=== PATIENT | female | born 2000 | race African-American/Black ===

== ENCOUNTER 2020-07-28 22:03 | Emergency (ER) | payer SELFPAY ==
--- NOTE | 2020-07-28 22:21 | ER Document Report ---
ED Medical Screen (RME) - General Chief Complaint: Abdominal Pain Stated Complaint: ABDOMINAL PAIN Time Seen by Provider: 07/28/20 22:15 Mode of Arrival: Ambulatory Information source: Patient Notes: HPI; 21-year-old female 3 para 1 presents to the emergency room complaining of left-sided abdominal pain that started earlier tonight. Describes it as a sharp pain patient states she has not had any OB care during this and her last menstrual cycle she says was sometime in March. Patient states she did go 2 weeks ago to an ultrasound center and was given the gender of the baby but they could not tell her how far along she was. PE: Alert and oriented x3. No acute distress noted. Lungs: Clear to auscultation without rales, rhonchi, wheezes. Heart: Regular rate rhythm without murmurs, rubs, gallops. Patient refused any medication in triage for her pain. I have greeted and performed a rapid initial assessment of this patient. A comprehensive ED assessment and evaluation of the patient, analysis of test results and completion of the medical decision making process will be conducted by additional ED providers. I have specifically instructed the patient or fami ly members with the patient to immediately return to any nursing staff should anything change in the patient's condition or with their chief complaint. TRAVEL OUTSIDE OF THE [place] IN LAST 30 DAYS: No - Related Data Allergies/Adverse Reactions: No Known Allergies Allergy (Unverified 07/28/20 22:14) Past Medical History - Social History Chew tobacco use (# tins/day): No Frequency of alcohol use: None Drug Abuse: None Physical Exam - Vital signs Vitals: Temp Pulse Resp BP Pulse Ox 97.9 F 91 14 138/79 H 98 07/28/20 22:10 07/28/20 22:10 07/28/20 22:10 07/28/20 22:10 07/28/20 22:10 Course - Vital Signs Vital signs: Temp Pulse Resp BP Pulse Ox 97.9 F 91 14 138/79 H 98 07/28/20 22:16 07/28/20 22:10 07/28/20 22:10 07/28/20 22:10 07/28/20 22:10
--- NOTE | 2020-07-29 01:14 | RADIOLOGY REPORT (SQ) ---
EXAM DESCRIPTION: ULTRASOUND OBSTETRICS LIMITED CLINICAL HISTORY: Abdominal pain COMPARISON: None available. TECHNIQUE: Multiple ultrasound images of the pelvis were acquired. FINDINGS: The fetus is in vertex position. A heart rate of 140 beats/minute is noted. Expected date of confinement by ultrasound is 12/31/2020. Age by ultrasound is 17 weeks 6 days. The LVP is 3.2 centimeters. The placenta is fundal in position. Examination is not performed for the purposes of anatomy assessment. The maternal cervical length is 3.0 centimeters. IMPRESSION: Single live intrauterine with details as provided above.
--- NOTE | 2020-07-29 02:01 | ER Document Report ---
ED GI/ - General Chief Complaint: Abdominal Pain Stated Complaint: ABDOMINAL PAIN Time Seen by Provider: 07/28/20 22:15 Mode of Arrival: Ambulatory Notes: CHIEF COMPLAINT: Left-sided abdominal pain today HPI: 20-year-old female presenting for left-sided abdominal pain in the setting of no vaginal bleeding or discharge. Patient has not seen [facility] for evaluation of this . Denies dysuria fever nausea vomiting ROS: See HPI - all other systems were reviewed and are otherwise negative Constitutional: no fever Eyes: no drainage, no blurred vision ENT: no runny nose, no sore throat Cardiovascular: no chest pain Resp: no SOB, no cough GI: no vomiting, no diarrhea, + abdominal pain : no dysuria Integumentary: no rash Allergy: no hives Musculoskeletal: no extremity pain or swelling Neurological: no numbness/tingling, no weakness MEDICATIONS: I agree with the patient medications as charted by the RN. ALLERGIES: I agree with the allergies as charted by the RN. PAST MEDICAL HISTORY/PAST SURGICAL HISTORY: Reviewed and agree as charted by RN. SOCIAL HISTORY: Reviewed and agree as charted by RN. FAMILY HISTORY: No significant familial comorbid conditions directly related to patient complaint EXAM: Reviewed vital signs as charted by RN. CONSTITUTIONAL: Alert and oriented and responds appropriately to questions. Well-appearing; well-nourished HEAD: Normocephalic; atraumatic EYES: PERRL; Conjunctivae clear, sclerae non-icteric ENT: normal nose; no rhinorrhea; moist mucous membranes; pharynx without lesions noted, no uvula edema or deviation, no tonsillar hypertrophy, phonation normal NECK: Supple without meningismus; non-tender; no cervical lymphadenopathy, no masses CARD: RRR; no murmurs, no clicks, no rubs, no gallops; symmetric distal pulses RESP: Normal chest excursion without splinting or tachypnea; breath sounds clear and equal bilaterally; no wheezes, no rhonchi, no rales, pulse oximetry 98% on room air not hypoxic ABD/GI: Normal bowel sounds; non-distended; soft, minimal tenderness left side of the abdomen on palpation, no rebound, no guarding; gravid uterus palpable and nontender BACK: The back appears normal and is non-tender to palpation, there is no CVA tenderness EXT: Normal ROM in all joints; non-tender to palpation; no cyanosis, no effusions, no edema SKIN: Normal color for age and race; warm; dry; good turgor; no acute lesions noted NEURO: Moves all extremities equally; Motor and sensory function intact PSYCH: The patient's mood and manner are appropriate. Grooming and personal hygiene are appropriate. MDM: 20-year-old female presenting for evaluation of left-sided abdominal pain in the setting of . Patient has no vaginal complaints. Patient declines pelvic exam at this time aware that we cannot evaluate cervix evaluate for vaginal bleeding or further evaluate her without pelvic exam. Aware that we cannot rule out vaginitis or other STDs. Patient continues to decline pelvic exam. Patient's ultrasound was done prior to my evaluation dates of at approximately 17 weeks. Awaiting urinalysis and lab work. If no other acute abnormalities are noted anticipate discharge to follow-up with [facility] with return instructions TRAVEL OUTSIDE OF THE [place] IN LAST 30 DAYS: No - Related Data Allergies/Adverse Reactions: No Known Allergies Allergy (Unverified 07/28/20 22:14) Past Medical History - General Information source: Patient Last Menstrual Period: 03/25 - Social History Smoking Status: Never Smoker Chew tobacco use (# tins/day): No Frequency of alcohol use: None Drug Abuse: None Family History: Reviewed & Not Pertinent Patient has homicidal ideation: No Physical Exam - Vital signs Vitals: Temp Pulse Resp BP Pulse Ox 97.9 F 91 14 138/79 H 98 07/28/20 22:10 07/28/20 22:10 07/28/20 22:10 07/28/20 22:10 07/28/20 22:10 Course - Re-evaluation Re-evalutation: 07/29/20 02:25 Lab work does not show any acute abnormalities including UTI. I have low suspicion for kidney stone at this time she is not uncomfortable at all. Perhaps round ligament pain. She continues to decline pelvic exam, will discharge to follow-up with [facility] - Vital Signs Vital signs: Temp Pulse Resp BP Pulse Ox 97.9 F 91 14 138/79 H 98 07/28/20 22:16 07/28/20 22:10 07/28/20 22:10 07/28/20 22:10 07/28/20 22:10 - Laboratory Result Diagrams: 07/29/20 01:36 07/29/20 01:36 Laboratory results interpreted by me: 07/29/20 07/29/20 07/29/20 01:36 01:36 01:36 WBC 12.4 H Hgb 11.9 L Hct 34.8 L RDW 14.7 H Absolute Neuts (auto) 8.8 H Sodium 134.8 L Creatinine 0.41 L Serum HCG, Qual POSITIVE H Urine Ketones Ur Leukocyte Esterase 07/29/20 01:44 WBC Hgb Hct RDW Absolute Neuts (auto) Sodium Creatinine Serum HCG, Qual Urine Ketones TRACE H Ur Leukocyte Esterase TRACE H Discharge - Discharge Clinical Impression: Abdominal pain, left lower quadrant Qualifiers: Weeks of gestation: 18 weeks Qualified Code(s): Z3A.18 - 18 weeks gestation of Condition: Fair Disposition: HOME, SELF-CARE Additional Instructions: Take Tylenol for pain. Follow-up with [facility] for further evaluation and treatment of your . Your lab work did not show any acute abnormali ties. Urine did not show evidence of an infection. You have declined pelvic exam tonight. If you have onset of vaginal bleeding or have worsening pain or concerns please return for further evaluation. Your dated at 17 weeks and 6 days tonight Referrals: ALYSSA DELEON MD [ACTIVE STAFF] - Follow up as needed
[2020-07-29 02:07] LABS: ABSOLUTE EOSINOPHILS # (AUTO) 0.1 10^3/uL (0.0-0.6); ABSOLUTE LYMPHOCYTES (AUTO) 2.6 10^3/uL (0.5-4.7); ABSOLUTE MONOCYTES (AUTO) 0.8 10^3/uL (0.1-1.4); ABSOLUTE NEUT (AUTO) 8.8 10^3/uL (1.7-8.2); BASOPHILS % (AUTO) 0.4 % (0-2); EOSINOPHILS % (AUTO) 0.6 % (0-6); HEMATOCRIT 34.8 % (36.0-47.0); HEMOGLOBIN 11.9 g/dL (12.0-15.5); LYMPHOCYTES % (AUTO) 21.4 % (13-45); MEAN CORPUSCULAR HEMOGLOBIN 29.9 pg (27.0-33.4); MEAN CORPUSCULAR HGB CONC 34.1 g/dL (32.0-36.0); MEAN CORPUSCULAR VOLUME 88 fl (80-97); MONOCYTES % (AUTO) 6.4 % (3-13); PLATELET COUNT 255 10^3/uL (150-450); RED BLOOD COUNT 3.96 10^6/uL (3.72-5.28); RED CELL DISTRIBUTION WIDTH 14.7 % (11.5-14.0); SEGMENTED NEUTROPHILS % (AUTO) 71.2 % (42-78); TOTAL CELLS COUNTED % (AUTO) 100 %; WHITE BLOOD COUNT 12.4 10^3/uL (4.0-10.5)
[2020-07-29 02:12] LABS: APPEARANCE,URINE SLIGHTLY-CLOUDY; BILIRUBIN,URINE NEGATIVE (NEGATIVE); COLOR,URINE YELLOW; GLUCOSE, URINE NEGATIVE (NEGATIVE); KETONES,URINE TRACE mg/dL (NEGATIVE); LEUKOCYTE ESTERASE,URINE TRACE (NEGATIVE); NITRITE,URINE NEGATIVE (NEGATIVE); PROTEIN,URINE NEGATIVE (NEGATIVE); URINE SPECIFIC GRAVITY 1.029; UROBILINOGEN,URINE NEGATIVE mg/dL (<2.0)
[2020-07-29 02:16] LABS: ALKALINE PHOSPHATASE 51 U/L (38-126); ANION GAP 7 (5-19); ASPARTATE AMINO TRANSFERASE 22 U/L (14-36); BILIRUBIN,DIRECT 0.2 mg/dL (0.0-0.4); BILIRUBIN,TOTAL 0.5 mg/dL (0.2-1.3); BLOOD UREA NITROGEN 11 mg/dL (7-20); CALCIUM 9.6 mg/dL (8.4-10.2); CARBON DIOXIDE 26 mmol/L (22-30); CHLORIDE 102 mmol/L (98-107); GLUCOSE 79 mg/dL (75-110); TOTAL PROTEIN 6.8 g/dL (6.3-8.2)
[2020-07-29 02:46] VITALS: BP 135/75
== END 2020-07-29 02:32 | disposition home or self-care (01) ==
LOC: ER 22:03
DX: O26.92 Pregnancy related conditions, unspecified, second trimester (principal); R10.32 Left lower quadrant pain; Z3A.18 18 weeks gestation of pregnancy
CPT/HCPCS: 36415; 76815; 80053; 81001; 84703; 85025; 99284

== ENCOUNTER 2020-08-22 11:18 | Emergency (ER) | payer MEDICAID ==
[2020-08-22 11:32] VITALS: BP 130/68
--- NOTE | 2020-08-22 12:15 | ER Document Report ---
ED Respiratory Problem - General Chief Complaint: Shortness Of Breath Stated Complaint: SHORTNESS OF BREATH Time Seen by Provider: 08/22/20 12:10 Primary Care Provider: STEFANO LUEVANO CNM [Primary Care Provider] - Follow up as needed Mode of Arrival: Ambulatory Information source: Patient Notes: 20 you have not had [age]-year-old female presents to ED for complaint of shortness of breath. She tested positive for Covid yesterday. States she had a [facility] test [facility] this week that said she was but she does not know how far. She states her last menstrual period was in March. She states she is short of breath and she is concerned about her and the baby. She is 3 para 1. States all 4 people in her house are positive for Covid. We will get blood urine order chest x-ray and a ultrasound. I have greeted and performed a rapid initial assessment of this patient. A comprehensive ED assessment and evaluation of the patient, analysis of test results and completion of medical decision making process will be conducted by an additional ED providers. TRAVEL OUTSIDE OF THE [place] IN LAST 30 DAYS: No - Related Data Allergies/Adverse Reactions: No Known Allergies Allergy (Unverified 07/28/20 22:14) Past Medical History - Social History Family History: Reviewed & Not Pertinent Physical Exam - Vital signs Vitals: Temp Pulse Resp BP Pulse Ox 98.2 F 87 16 130/68 H 100 08/22/20 11:32 08/22/20 11:32 08/22/20 11:32 08/22/20 11:32 08/22/20 11:32 Course - Vital Signs Vital signs: Temp Pulse Resp BP Pulse Ox 98.2 F 87 16 130/68 H 100 08/22/20 11:32 08/22/20 11:32 08/22/20 11:32 08/22/20 11:32 08/22/20 11:32 Discharge - Discharge Referrals: STEFANO LUEVANO CNM [Primary Care Provider] - Follow up as needed
--- NOTE | 2020-08-22 12:15 | ER Document Report ---
ED Medical Screen (RME) - General Chief Complaint: Shortness Of Breath Stated Complaint: SHORTNESS OF BREATH Time Seen by Provider: 08/22/20 12:10 Primary Care Provider: STEFANO LUEVANO CNM [Primary Care Provider] - Follow up as needed Mode of Arrival: Ambulatory Information source: Patient Notes: 20 you have not had [age]-year-old female presents to ED for complaint of shortness of breath. She tested positive for Covid yesterday. States she had a urine test at the [facility] this week that said she was but she does not know how far. She states her last menstrual period was in March. She states she is short of breath and she is concerned about her and the baby. She is 3 para 1. States all 4 people in her house are positive for Covid. We will get blood urine order chest x-ray and a ultrasound. I have greeted and performed a rapid initial assessment of this patient. A comprehensive ED assessment and evaluation of the patient, analysis of test results and completion of medical decision making process will be conducted by an additional ED providers. TRAVEL OUTSIDE OF THE [place] IN LAST 30 DAYS: No - Related Data Allergies/Adverse Reactions: No Known Allergies Allergy (Unverified 07/28/20 22:14) Physical Exam - Vital signs Vitals: Temp Pulse Resp BP Pulse Ox 98.2 F 87 16 130/68 H 100 08/22/20 11:32 08/22/20 11:32 08/22/20 11:32 08/22/20 11:32 08/22/20 11:32 Course - Vital Signs Vital signs: Temp Pulse Resp BP Pulse Ox 98.2 F 87 16 130/68 H 100 08/22/20 11:32 08/22/20 11:32 08/22/20 11:32 08/22/20 11:32 08/22/20 11:32 Doctor's Discharge - Discharge Referrals: STEFANO LUEVANO CNM [Primary Care Provider] - Follow up as needed
== END 2020-08-22 12:30 | disposition left against medical advice (07) ==
LOC: ER 11:18
DX: O98.519 Other viral diseases complicating pregnancy, unspecified trimester (principal); U07.1 COVID-19; Z3A.00 Weeks of gestation of pregnancy not specified; Z53.29 Procedure and treatment not carried out because of patient's decision for other reasons
CPT/HCPCS: 99281

== ENCOUNTER 2020-10-26 17:32 | Outpatient (CLI) | payer MEDICAID ==
[2020-10-26] MEDS ORDERED: RINGERS SOLUTION,LACTATED 1,000 ML IV PRN (18:30)
[2020-10-26 18:48] LABS: BACTERIA (WET MOUNT) 4+ BACTERIA SEEN; EPITHELIALS (WET MOUNT) 4+ EPITHELIALS SEEN; RBCS (WET MOUNT) FEW RBCS SEEN; T.VAGINALIS (WET MOUNT) NO TRICHOMONAS SEEN; WBCS (WET MOUNT) 1+ WBCS SEEN; YEAST (WET MOUNT) NO YEAST SEEN
[2020-10-26 18:57] LABS: APPEARANCE,URINE CLEAR; BILIRUBIN,URINE NEGATIVE (NEGATIVE); COLOR,URINE YELLOW; GLUCOSE, URINE NEGATIVE (NEGATIVE); KETONES,URINE NEGATIVE (NEGATIVE); LEUKOCYTE ESTERASE,URINE NEGATIVE (NEGATIVE); NITRITE,URINE NEGATIVE (NEGATIVE); PROTEIN,URINE NEGATIVE (NEGATIVE); URINE SPECIFIC GRAVITY 1.012; UROBILINOGEN,URINE NEGATIVE mg/dL (<2.0)
[2020-10-26 19:10] LABS: URINE AMPHETAMINES SCREEN NEGATIVE; URINE BARBITURATES SCREEN NEGATIVE; URINE BENZODIAZEPINES SCREEN NEGATIVE; URINE COCAINE SCREEN NEGATIVE; URINE MARIJUANA (THC) SCREEN NEGATIVE; URINE METHADONE SCREEN NEGATIVE; URINE PHENCYCLIDINE SCREEN NEGATIVE
[2020-10-26 20:23] LABS: CHLAM PCR NOT DETECTED (NOT DETECT)
== END 2020-10-26 20:40 | disposition home or self-care (01) ==
LOC: LC 17:32
PROVIDERS: ATTEND Obstetrics & Gynecology Gynecology
DX: O60.03 Preterm labor without delivery, third trimester (principal); Z3A.31 31 weeks gestation of pregnancy
CPT/HCPCS: 80307; 81001; 84112; 87210; 87491; 87591